=== PATIENT | female | born 1985 | race Caucasian/White ===

== ENCOUNTER → 2016-10-18 | Outpatient (CLI) | payer MEDICARE, OTHER ==
--- NOTE | 2016-10-18 16:09 | CT ---
EXAMINATION TYPE: CT abdomen wo con DATE OF EXAM: 10/18/2016 COMPARISON: NONE INDICATION: Lump to anterior abdomen, umbilical region. DLP: 1560.40 mGycm, Automated exposure control for dose reduction was used. CONTRAST: None Study performed with Oral Contrast TECHNIQUE: Axial images were obtained from above the diaphragm to the pubic rami in the axial plane a t 5 mm thick sections. Reconstructed images are reviewed on the computer in the coronal plane. FINDINGS: Limited CT sections are obtained the lung bases. The lung bases are clear. CT ABDOMEN: Liver: Hepatomegaly is present. Spleen: Normal Pancreas: Normal Adrenal glands: The adrenal glands are normal. Gallbladder: Surgically absent Kidneys: No masses are evident. No hydronephrosis is present. No cysts are present. Delayed images were obtained through the kidneys, which remain unremarkable. Aorta: Vascular calcification is within the aorta. Inferior vena cava: Normal. IMPRESSIONS: 1. Normal noncontrast CT abdomen and pelvis. 2. No suspicious periumbilical mass or herniation.
== END | disposition home or self-care (01) ==
LOC: RADCTMAIN 15:07
PROVIDERS: ATTEND Family Medicine
DX: K43.9 Ventral hernia without obstruction or gangrene (principal)
CPT/HCPCS: 74150

== ENCOUNTER 2019-12-03 21:47 | Emergency (ER) | payer MEDICARE, OTHER ==
[2019-12-03 21:58] VITALS: BP 139/60; PULSE 98; RESP 20; TEMP 99.1
[2019-12-03] MEDS ORDERED: RABIES IMMUNE GLOB 300 UNIT/ML 1 ML VIAL IM ONE (22:25)
[2019-12-03] MEDS ORDERED: DIPH,PERTUS(ACELL)TETVAC-LF 0.5 ML VIAL IM ONE (22:26)
[2019-12-03] MEDS ORDERED: RABIES VACCINE (PCEC) 2.5 UNIT KIT IM ONE (23:00)
[2019-12-03] MEDS ORDERED: RABIES IMMUNE GLOB 300 UNIT/ML 5 ML VIAL IM ONE (23:00)
--- NOTE | 2019-12-03 23:18 | ED ---
General Adult HPI - General Chief complaint: Wound/Laceration Stated complaint: Bilateral hand injury Time Seen by Provider: 12/03/19 22:07 Source: patient, RN notes reviewed, old records reviewed Mode of arrival: ambulatory Limitations: no limitations - History of Present Illness Initial comments: 34-year-old female patient with no pertinent past medical history presents to ED for evaluation of possible bat bite. Patient reports that she was at her apartment sitting at a desk when a bat fell next to her on the floor. Patient attempted multiple ways to get the bat out of the house using a broom. At one point patient attempted to sweep the bat and a box the bat was flying around was close to her. She does not believe that she was bitten by the bat however she is not entirely sure and when she was finally able to get the bat to exit her house there were 2 abrasions on her hand. Denies any other acute complaints. Systemic: Pt denies fatigue, fever/chills, rash. Pt denies weakness, night sweats, weight loss. Neuro: Pt denies headache, visual disturbances, syncope or pre-syncope. HEENT: Pt denies ocular discharge or irritation, otalgia, rhinorrhea, pharyngitis or notable lymphadenopathy. Cardiopulmonary: Pt denies chest pain, SOB, heart palpitations, dyspnea on exertion. Abdominal/GI: Pt denies abdominal pain, n/v/d. : Pt denies dysuria, burning w/ urination, frequency/urgency. Denies new onset urinary or bowel incontinence. MSK: Pt denies myalgia, loss of strength or function in extremities. Neuro: Pt denies new onset weakness, paresthesias. - Related Data Allergies Allergy/AdvReac Type Severity Reaction Status Date / Time haloperidol [From Haldol] Allergy Hallucinati Verified 12/03/19 21:58 ons Review of Systems ROS Statement: Those systems with pertinent positive or pertinent negative responses have been documented in the HPI. ROS Other: All systems not noted in ROS Statement are negative. Past Medical History Additional Past Medical History / Comment(s): ovarian cyst History of Any Multi-Drug Resistant Organisms: None Reported Past Surgical History: Appendectomy, Cholecystectomy Past Psychological History: Bipolar, Schizophrenia Smoking Status: Never smoker Past Alcohol Use History: None Reported Past Drug Use History: None Reported General Exam - General Exam Comments Initial Comments: Constitutional: NAD, AOX3, Pt has pleasant affect. HEENT: NC/AT, trachea midline, neck supple, no lymphadenopathy. Posterior pharynx non erythematous, without exudates. External ears appear normal, without discharge. Mucous membranes moist. Eyes PERRLA, EOM intact. There is no scleral icterus. No pallor noted. Cardiopulmonary: RRR, no murmurs, rubs or gallops, no JVD noted. Lungs CTAB in anterior and posterior rico. No peripheral edema. Neuro: CN II-XII grossly intact. No nuchal rigidity. No raccon eyes, no dey sign, no hemotympanum. No cervical spinal tenderness. MSK: Abrasion on left hand until 11 between first and second digit. Abrasion on right hand lateral aspect of fifth digit. Both of these were vigorously irrigated with 1 L of normal saline total. Limitations: no limitations Course Vital Signs 12/03/19 21:52 Temperature 99.1 F Pulse Rate 98 Respiratory 20 Rate Blood Pressure 139/60 O2 Sat by Pulse 99 Oximetry Medical Decision Making - Medical Decision Making There is a female patient appears ED for evaluation after a significant interaction involving a bat in the house resulting in her having abrasions to both hands. Patient was recommended and did receive tetanus as well as rabies vaccine and immunoglobulin. Patient discharged with outpatient follow-up and return precautions. Case discussed with Dr. Montiel. Disposition Clinical Impression: Exposure to bat without known bite, Abrasion hand Disposition: HOME SELF-CARE Condition: Stable Instructions (If sedation given, give patient instructions): Rabies Vaccine (By injection), Rabies Immune Globulin (By injection) Additional Instructions: go to [facility] on (12/05,12/09. 12/16) for repeat vaccine doses. Follow-up with primary care provider in 1-2 days. Keep areas of abrasions clean and dry. Return to ER if condition worsens. Is patient prescribed a controlled substance at d/c from ED?: No Referrals: Elias Cavazos DO [Primary Care Provider] - 1-2 days
== END 2019-12-03 23:46 | disposition home or self-care (01) ==
LOC: EC 21:47
DX: S60.512A Abrasion of left hand, initial encounter (principal); S60.511A Abrasion of right hand, initial encounter; Z20.3 Contact with and (suspected) exposure to rabies; Z23 Encounter for immunization; Z20.828 Contact with and (suspected) exposure to other viral communicable diseases; Z88.8 Allergy status to other drugs, medicaments and biological substances; W55.82XA Struck by other mammals, initial encounter
CPT/HCPCS: 90375; 90471; 90675; 90715; 96372; 99283

== ENCOUNTER → 2019-12-14 | Outpatient (CLI) | payer MEDICARE, OTHER ==
--- NOTE | 2019-12-15 11:56 | MM ---
Reason for exam: screening (asymptomatic). Last mammogram was performed 7 years and 6 months ago. History: Patient is nulliparous. Family history of breast cancer in mother at age 55. Physical Findings: A clinical breast exam by your physician is recommended on an annual basis and results should be correlated with mammographic findings. MG 3D Screening Mammo W/Cad Bilateral CC and MLO view(s) were taken. Prior study comparison: June 24, 2012, mammogram, performed at [facility]. There are scattered fibroglandular densities. There are benign appearing round calcifications bilaterally. There is no discrete abnormality. ASSESSMENT: Benign, BI-RAD 2 RECOMMENDATION: Routine screening mammogram of both breasts in 1 year.
== END | disposition home or self-care (01) ==
LOC: RADMAMWWP 13:22
PROVIDERS: ATTEND Family Medicine
DX: Z12.31 Encounter for screening mammogram for malignant neoplasm of breast (principal)
CPT/HCPCS: 77063; 77067

== ENCOUNTER → 2021-02-02 | Outpatient (CLI) | payer MEDICARE, OTHER ==
--- NOTE | 2021-02-07 09:57 | MM ---
Reason for exam: screening (asymptomatic). Last mammogram was performed 1 year and 2 months ago. History: Patient is nulliparous. Family history of breast cancer in mother at age 55. Took hormonal contraceptives for 1 year. Physical Findings: A clinical breast exam by your physician is recommended on an annual basis and results should be correlated with mammographic findings. MG Screening Mammo w CAD Bilateral CC and MLO view(s) were taken. Prior study comparison: December 14, 2019, bilateral MG 3d screening mammo w/cad. There are scattered fibroglandular densities. No significant changes when compared with prior studies. ASSESSMENT: Negative, BI-RAD 1 RECOMMENDATION: Routine screening mammogram of both breasts at age 38. (unless clinical indication to start sooner)
== END | disposition home or self-care (01) ==
LOC: RADMAMWWP 15:34
PROVIDERS: ATTEND Family Medicine
DX: Z12.31 Encounter for screening mammogram for malignant neoplasm of breast (principal); Z80.3 Family history of malignant neoplasm of breast
CPT/HCPCS: 77067

== ENCOUNTER → 2023-10-07 | Outpatient (CLI) | payer MEDICARE, OTHER ==
--- NOTE | 2023-10-07 12:45 | XR ---
EXAMINATION TYPE: XR chest 2V DATE OF EXAM: 10/07/2023 COMPARISON: 08/30/2009 TECHNIQUE: PA and lateral views submitted. HISTORY: Cough FINDINGS: The lungs are clear and there is no pneumothorax, pleural effusion, or focal pneumonia. Heart size normal and no overt failure. Osseous structures demonstrate hypertrophic and degenerative changes of the spine. IMPRESSION: 1. No acute process.
== END | disposition home or self-care (01) ==
LOC: RADXRMAIN 12:06
PROVIDERS: ATTEND Family Medicine
DX: R05.9 Cough, unspecified (principal)
CPT/HCPCS: 71046

== ENCOUNTER → 2023-10-11 | Outpatient (CLI) | payer MEDICARE, OTHER ==
--- NOTE | 2023-10-16 09:44 | MM ---
Reason for Exam: Screening (asymptomatic). Last mammogram was performed 2 year(s) and 8 month(s) ago. Patient History: Menarche at age 10. Patient has no children. Patient used Hormonal Contraceptives for 1 year. Mother had breast cancer, age 55. Last menstrual period: 09/12/2023 Risk Values: Mary 5 year model risk: 1.1%. NCI Lifetime model risk: 18.8%. Prior Study Comparison: 06/24/2012 Screening Mammogram, [facility]. 12/14/2019 Bilateral Screening Mammogram, [facility]. 02/02/2021 Bilateral Screening Mammogram, [facility]. Tissue Density: There are scattered areas of fibroglandular density. Findings: Analyzed By CAD. There is no suspicious group of microcalcifications or new suspicious mass in either breast. Overall Assessment: Negative, BI-RAD 1 Management: Screening Mammogram of both breasts in 1 year. . Patient should continue monthly self-breast exams. A clinical breast exam by your physician is recommended on an annual basis. This exam should not preclude additional follow-up of suspicious palpable abnormalities. Note on Mary scores and lifetime risk: 1. A Mary score greater than 3% is considered moderate risk. If this is the case, consider specialist referral to assess eligibility for a risk reducing agent. 2. If overall lifetime risk for the development of breast cancer is 20% or higher, the patient may qualify for future screening with alternating mammogram and breast MRI. Electronically signed and approved by: Hussain Dacosta M.D. Radiologis
== END | disposition home or self-care (01) ==
LOC: RADMAMWWP 13:22
PROVIDERS: ATTEND Family Medicine
DX: Z12.31 Encounter for screening mammogram for malignant neoplasm of breast (principal); Z80.3 Family history of malignant neoplasm of breast
CPT/HCPCS: 77063; 77067

== ENCOUNTER → 2023-10-30 | Outpatient (CLI) | payer MEDICARE, OTHER ==
--- NOTE | 2023-10-30 12:30 | XR ---
EXAMINATION TYPE: XR Hip Complete LT DATE OF EXAM: 10/30/2023 COMPARISON: NONE HISTORY: Pain TECHNIQUE: 2 views submitted FINDINGS: There is no evidence of erosive change or acute fracture. Mild hypertrophic changes of the acetabulum associated with femoral acetabular impingement. IMPRESSION: 1. No evidence of acute fracture or dislocation.
--- NOTE | 2023-10-30 12:32 | XR ---
EXAM TYPE: LUMBAR SPINE X RAY SERIES COMPARISON: NONE HISTORY: Pain TECHNIQUE: 4 views are submitted. FINDINGS: Alignment is anatomic. The pedicles are intact. The transverse processes are intact. There is calc ifications in the right and left upper quadrants are nonspecific. There is hypertrophic spurring at virtually all levels with mild degenerative disc disease L4-5 and m oderate changes at L5-S1 with facet arthropathy and suspected foraminal SI joints patent. IMPRESSION: 1. Mild L4-L5 degenerative changes and moderate degenerative disc disease L5-S1 with facet arthropath y. 2. Nonspecific upper abdominal calcifications.
== END | disposition home or self-care (01) ==
LOC: RADXRMAIN 12:01
PROVIDERS: ATTEND Nurse Practitioner Family
DX: M47.817 Spondylosis without myelopathy or radiculopathy, lumbosacral region (principal); M51.36 Other intervertebral disc degeneration, lumbar region; M47.816 Spondylosis without myelopathy or radiculopathy, lumbar region; M51.37 Other intervertebral disc degeneration, lumbosacral region; M25.552 Pain in left hip
CPT/HCPCS: 72100; 73502

== ENCOUNTER → 2023-12-18 | Outpatient (CLI) | payer MEDICARE, OTHER ==
--- NOTE | 2024-01-09 06:52 | MR ---
Site ID synapse default Patient Maria C Mathew L ID [id number] Age/Gender: 38Y, F Order # N/A Procedure MR brain wo con Date 12/18/2023 2:45:53 PM EXAMINATION TYPE: MR brain wo con DATE OF EXAM: 12/18/2023 5:48 PM COMPARISON: CT brain 08/19/2009. CLINICAL INDICATION: Female, 38 year old with history of slurred speech, falls, off balance. TECHNIQUE: Multi planar, multi sequence imaging was performed through the brain. No gadolinium was gi rylan. FINDINGS: The santiago-white junctions, ventricular system, and cisterns appear unremarkable. No suspicious cerebra l parenchymal lesions identified. Midline structures show no abnormality. Diffusion-weighted imaging shows no evidence of restricted diffusion. The susceptibility weighted images do not reveal any evide nce for micro-hemorrhage. Partially empty sella. The bone marrow signal is within normal limits. The globes are unremarkable. The mastoid air cells ar e clear. Minimal mucosal thickening of the inferior right maxillary sinus. Near complete opacificatio n of the left maxillary sinus with T2 hyperintense fluid. Mild mucosal thickening in the anterior lef t ethmoid sinus. IMPRESSION: 1. No evidence of intracranial mass or acute/subacute infarct. 2. Left maxilla sinus disease with near complete opacification.
== END | disposition home or self-care (01) ==
LOC: RADMRIMAIN 15:27
PROVIDERS: ATTEND Family Medicine
DX: J32.0 Chronic maxillary sinusitis (principal)
CPT/HCPCS: 70551

== ENCOUNTER → 2024-03-17 | Outpatient (CLI) | payer MEDICARE, OTHER | LOC: CPPFTMAIN 12:35 | PROVIDERS: ATTEND Family Medicine | DX: R05.9 Cough, unspecified (principal); Z88.8 Allergy status to other drugs, medicaments and biological substances | CPT/HCPCS: 94060; 94726; 94729 ==

== ENCOUNTER → 2024-10-27 | Outpatient (CLI) | payer MEDICARE, OTHER ==
--- NOTE | 2024-10-27 20:57 | MR ---
CLINICAL INDICATION: R79.89 OTH SPEC ABN FIND OF BLOOD . COMPARISON: MRI brain 12/18/2023. TECHNIQUE: Specialized thin sequences were obtained through the pituitary gland/sella turcica. Pre- and post gadolinium sequences were obtained as well after administration of 14 cc of Gadobutrol. FINDINGS: The morphology of the pituitary gland is within normal limits. The pituitary stalk is not deviated. After administration of gadolinium, homogeneous pituitary enhancement is seen. The intracranial art erial flow voids are intact. IMPRESSION: No convincing MRI evidence for pituitary micro or macroadenoma. If the patient has abnormal labs and/ or symptoms possibly related to pituitary neoplasm I would consider repeat MRI in 6-12 months time to reassess. [facility], , 10/27/2024 8:55 PM
== END | disposition home or self-care (01) ==
LOC: RADMRIMAIN 18:40
PROVIDERS: ATTEND Family Medicine
DX: R79.89 Other specified abnormal findings of blood chemistry (principal)
CPT/HCPCS: 70553; A9585